=== PATIENT | male | born 1995 | race Caucasian/White ===

== ENCOUNTER 2023-10-19 05:15 | Emergency (ER) | payer BC ==
[2023-10-19 05:43] VITALS: BP 119/79; PULSE 88; RESP 18; TEMP 98.5; BMI 21.6
[2023-10-19] MEDS ORDERED: KETOROLAC TROMETHAMINE 30 MG/1 ML VIAL ONE (06:15)
[2023-10-19] MEDS ORDERED: BACITRACIN ZINC 15 GM TUBE TOPICAL OINTMENT ONE (06:18)
[2023-10-19] MEDS: KETOROLAC TROMETHAMINE 30 MG/1 ML VIAL IM ONE (06:19)
[2023-10-19] MEDS ORDERED: DALBAVANCIN HCL 500 MG VIAL (RESTRICTED TO ID ONLY) IVPB ONE (06:23)
[2023-10-19] MEDS: CEPHALEXIN MONOHYDRATE 500 MG CAPSULE (UD) PO ONE (06:37)
[2023-10-19] MEDS: DALBAVANCIN HCL 1,500 MG in DEXTROSE 5%-WATER - 500 ML IVPB ONE (06:37)
== END 2023-10-19 07:57 | disposition home or self-care (01) ==
LOC: JER 05:15
PROC: 3E03329 Introduction of Other Anti-infective into Peripheral Vein, Percutaneous Approach (ICD-10-PCS; principal; 2023-10-19)
PROC: 3E0133Z Introduction of Anti-inflammatory into Subcutaneous Tissue, Percutaneous Approach (ICD-10-PCS; 2023-10-19)
DX: S91.001A Unspecified open wound, right ankle, initial encounter (principal); W26.8XXA Contact with other sharp object(s), not elsewhere classified, initial encounter; Y93.31 Activity, mountain climbing, rock climbing and wall climbing
CPT/HCPCS: 99284-25; J0875

== ENCOUNTER 2024-01-25 19:38 | Emergency (ER) | payer BC ==
[2024-01-25 19:47] VITALS: BP 104/67; PULSE 78; RESP 20; BMI 22.6
== END 2024-01-25 21:53 | disposition home or self-care (01) ==
LOC: JERFT 19:38
DX: S82.832A Other fracture of upper and lower end of left fibula, initial encounter for closed fracture (principal); W01.0XXA Fall on same level from slipping, tripping and stumbling without subsequent striking against object, initial encounter
CPT/HCPCS: 73610-TC-LT-FY; 99283-25